=== PATIENT | female | born 1995 | race African-American/Black ===

== ENCOUNTER → 2021-03-17 | Outpatient (CLI) | payer BC ==
--- NOTE | 2021-03-17 11:58 | Diagnostic Imaging Report ---
INDICATION: Spotting, early . EXAMINATION: OB sonogram, less than 14 weeks, 03/17/2021. FINDINGS: The uterus 8.8 cm in length. Within the endometrium, there is a single live intrauterine gestation currently measuring 6 weeks 6 days with a heart rate of 130 BPM. Yolk sac is seen. Adjacent to the gestational sac is a 5.7 x 1.5 x 2.4 cm hypoechoic area consistent with subchorionic hemorrhage. The adnexa appear unremarkable. There is no free fluid. IMPRESSION: 1. Single live intrauterine gestation measuring 6 weeks 6 days. Adjacent subchorionic hemorrhage is seen. Follow-up could reevaluate. Dictated by: Dictated on workstation # [id number]
== END ==
LOC: RAD 11:00
PROVIDERS: ATTEND Family Medicine
DX: O20.0 Threatened abortion (principal); Z3A.01 Less than 8 weeks gestation of pregnancy
CPT/HCPCS: 76801; 76817

== ENCOUNTER → 2021-04-13 | Outpatient (CLI) | payer BC ==
--- NOTE | 2021-04-13 13:05 | Diagnostic Imaging Report ---
TECHNIQUE: Live color Doppler and grayscale ultrasound was performed transabdominally and transvaginally. REASON FOR EXAM: Evaluate viability. Followup. COMPARISON: 03/17/2021. FINDINGS: A single live intrauterine gestation is visualized with a crown-rump length of 3.8 cm, consistent with a 10 week 5 day gestation. heart rate measures 153 BPM. The gestational sac demonstrates normal contours. A small hypoechoic area is seen adjacent to the gestational sac, likely representing subchorionic hemorrhage. A formal anatomic survey was not performed; however, no obvious anatomic abnormalities are present. Views of the bilateral adnexa demonstrate no acute abnormalities. The cervix is closed and measures 3.9 cm in length. IMPRESSION: 1. Single live intrauterine at approximately 10 weeks 5 days with an MELECIO of 11/05/2021. These are within range of clinical dates. 2. Small focus of subchorionic hemorrhage abutting less than 25% of the gestational sac. Recommend followup as indicated. Dictated by: Dictated on workstation # [id number]
== END ==
LOC: RAD 10:30
PROVIDERS: ATTEND Family Medicine
DX: Z34.91 Encounter for supervision of normal pregnancy, unspecified, first trimester (principal); Z3A.10 10 weeks gestation of pregnancy
CPT/HCPCS: 76817

== ENCOUNTER 2022-03-12 12:54 | Emergency (ER) | payer BC ==
[2022-03-12] MEDS ORDERED: KETO10TA PO (13:17)
[2022-03-12] MEDS ORDERED: CYCL5TAB PO (13:17)
--- NOTE | 2022-03-12 13:18 | ED Back Pain ---
General Chief Complaint: Back Problems Stated Complaint: BACK PAIN Nursing Triage Note: PT AMB TO [facility] WITH C/O BACK INJURY [employer]AMPING AND TINGLING BILAT LEGS. PT STATES SHE WAS LIFTING A TOTE AND FELT A POP IN HER BACK Source of Information: Patient Exam Limitations: No Limitations History of Present Illness Date Seen by Provider: Mar 12, 2022 Time Seen by Provider: 13:06 Initial Comments 26-year-old female presents emergency department today for low back pain. He describes pain as dull throbbing in her right lower lumbar region. No radiation. Aggravated by bending or twisting, alleviated somewhat by rest. She was lifting a tote just prior to arrival and felt a pop. No loss of bowel or bl adder control. No lower extremity weakness numbness. She does have some tingling in her bilateral lower extremities down to her toes. She has had similar symptoms in the past. Allergies and Home Medications Allergies Coded Allergies: No Known Drug Allergies (Unverified , 08/01/21) Patient Home Medication List Home Medication List Reviewed: Yes Cyclobenzaprine HCl (Cyclobenzaprine HCl) 5 Mg Tablet, 5 MG PO Q6H Prescribed by: JOEY CHANEY MD on 03/12/22 1317 Ketorolac Tromethamine (Ketorolac Tromethamine) 10 Mg Tablet, 10 MG PO TID Prescribed by: JOEY CHANEY MD on 03/12/22 1317 Review of Systems Constitutional: no symptoms reported EENTM: no symptoms reported Respiratory: no symptoms reported Cardiovascular: no symptoms reported Gastrointestinal: no symptoms reported Genitourinary: no symptoms reported Musculoskeletal: back pain Skin: no symptoms reported Psychiatric/Neurological: No Symptoms Reported Past [id number] Hx Patient Social History Tobacco Use?: No Substance use?: No Alcohol Use?: Yes Alcohol Frequency: Once in a while Pt feels they are or have been: Unable to obtain Immunizations Up To Date Influenza Vaccine Up-to-Date: No; Not Current Family Medical History Reviewed Nursing Family Hx No Pertinent Family Hx Physical Exam Vital Signs Vital Signs - First Documented 03/12/22 13:00 Temp 36.3 Pulse 96 Resp 18 B/P (MAP) 144/100 (115) Capillary Refill : Height, Weight, BMI Height: '" Weight: lbs. oz. kg; 38.22 BMI Method: General Appearance: No Apparent Distress, WD/WN HEENT: Normal ENT Inspection, Pharynx Normal Neck: Full Range of Motion, Normal Inspection, Non Tender, Supple Cardiovascular: Regular Rate, Rhythm, No Edema Respiratory: Chest Non Tender, Lungs Clear, Normal Breath Sounds, No Accessory Muscle Use, No Respiratory Distress Gastrointestinal: Normal Bowel Sounds, No Organomegaly, No Pulsatile Mass, Non Tender, Soft Back: Other (Tenderness right lumbar region with voluntary guarding. No midline tenderness.) Extremity: Normal Capillary Refill, Normal Inspection, Normal Range of Motion, Non Tender, No Calf Tenderness Neurologic/Psychiatric: Alert, Oriented x3, No Motor/Sensory Deficits, Normal Mood/Affect Skin: Normal Color, Warm/Dry Lymphatic: No Adenopathy Progress/Results/Core Measures Results/Orders Vital Signs/I&O 03/12/22 13:00 Temp 36.3 Pulse 96 Resp 18 B/P (MAP) 144/100 (115) 2 Blood Pressure Mean: 115 Departure Communication (Admissions) Patient is hemodynamically stable with no red flag symptoms. Anti-inflammatory, muscle relaxers and discharged in stable condition. Impression Primary Impression: Lumbar sprain Qualified Codes: S33.5XXA - Sprain of ligaments of lumbar spine, initial encounter Disposition: HOME, SELF-CARE Condition: Critical Departure-Patient Inst. Referrals: ARMANDO LOWE MD (PCP/Family) Primary Care Physician Patient Instructions: Back Muscle Strain (DC) Add. Discharge Instructions: Please take the medications as prescribed as needed. The muscle relaxer, cyclobenzaprine, might make you drowsy. Do not drive or make important decisions while you are taking this. Follow-up with your primary doctor should your symptoms persist more than a couple of weeks. Return to the emergency department for any loss of bowel or bladder control or if your symptoms change in any way otherwise concerning to you. All discharge instructions reviewed with patient and/or family. Voiced understanding. Scripts Cyclobenzaprine HCl (Cyclobenzaprine HCl) 5 Mg Tablet 5 MG PO Q6H for 7 Days, #28 TAB Prov: JOEY CHANEY DO 03/12/22 Ketorolac Tromethamine (Ketorolac Tromethamine) 10 Mg Tablet 10 MG PO TID for Pain for 3 Days, #9 TAB Prov: JOEY CHANEY DO 03/12/22 JOEY CHANEY DO Mar 12, 2022 13:18
[2022-03-12 13:23] VITALS: BP 144/100
== END 2022-03-12 13:24 | disposition home or self-care (01) ==
LOC: EDUNIT# 12:54 → ER 12:56
DX: S33.5XXA Sprain of ligaments of lumbar spine, initial encounter (principal); X50.1XXA Overexertion from prolonged static or awkward postures, initial encounter; Y93.F2 Activity, caregiving, lifting
CPT/HCPCS: 99281